=== PATIENT | male | born 1945 | race American Indian/Alaskan Native ===

== ENCOUNTER 2017-07-08 09:45 | Emergency (ER) | payer MEDICARE ==
[~2017-07-08 09:45] MED LIST: ADRENALIN ONE; ATROPINE 0.1% (CARDIAC) ONE; INTROPIN DRIP 800 MG/D5W 250 ML IV ONE; SODIUM BICARBONATE IV ONE
--- NOTE | 2017-07-08 10:16 | Emergency Department Report ---
HPI - General Time Seen by Provider: 07/08/17 10:11 - HPI HPI: Room 20 The patient is 71-year-old male presenting with chief complaint cardiac arrest. Per EMS the patient was a witnessed arrest and they arrived on scene at 09: 055 the patient with agonal respirations. Patient was intubated by EMS administered one round of epinephrine in addition to CPR. Upon arrival there were copious secretions which appeared to be gastric in nature coming from the ET tube and there were no breath sounds auscultated subsequently EMS ET tube was removed and the patient was reintubated by myself with an 8.0 tube. ACLS protocols were continued without return of spontaneous circulation Location: Cardiovascular system Duration: [see above] Quality: Pulseless Severity: Severe Modifying factors: [see above] Context: [see above] Mode of transportation: [not driving] ED Past Medical Hx - Past Medical History Hx Hypertension: Yes (MITRAL VAVLE REGURITATION) - Family History Family history: no significant - Social History Smoking Status: Unknown if ever smoked - Medications Home Medications: Home Medications Medication Instructions Recorded Confirmed Last Taken Type Cat 10-40 mg 1 tab PO DAILY 08/01/15 08/03/15 07/31/15 History Metoprolol 50 mg PO DAILY 08/01/15 08/03/15 08/03/15 History Tamsulosin 0.4 mg PO DAILY 08/01/15 08/03/15 08/02/15 History ED Review of Systems ROS: Stated complaint: CARDIAC ARREST Other details as noted in HPI Comment: Unobtainable due to pts medical conditions Physical Exam - Physical Exam Physical Exam: GENERAL: The patient is well-developed well-nourished male lying on stretcher being bagged via ET tube with copious pink secretions coming from the ET tube, receiving chest compressions from EMS. [] HEENT: Normocephalic. Atraumatic. Pupils 6 mm and nonreactive bilaterally NECK: Trachea midline CHEST/LUNGS: No breath sounds auscultated with bagging upon arrival. Breath sounds equal bilaterally after EMS ET tube removed and patient reintubated by myself HEART/CARDIOVASCULAR: No heart sounds, PEA/agonal rhythm on monitor ABDOMEN: Abdomen is soft SKIN: There is no rash. There is no edema. There is no diaphoresis. NEURO: GCS 3T MUSCULOSKELETAL: There is no evidence of acute injury. ED Medical Decision Making - Differential Diagnosis cardiac arrest Critical care attestation.: If time is entered above; I have spent that time in minutes in the direct care of this critically ill patient, excluding procedure time. ED Disposition Clinical Impression: Cardiac arrest Disposition: DC-20 Is pt being admited?: No Does the pt Need Aspirin: No Condition: Poor Referrals: PRIMARY CARE, [Primary Care Provider] - 3-5 Days Time of Disposition: 10:16 (patient )
== END 2017-07-08 12:13 ==
LOC: ED 09:45
DX: I46.9 Cardiac arrest, cause unspecified (principal); I10 Essential (primary) hypertension
CPT/HCPCS: 31500; 82962; 92950; 99285; J0171; J0461; J1265